=== PATIENT | male | born 1955 | race Caucasian/White ===

== ENCOUNTER 2025-05-27 19:08 | Inpatient (IN) | payer MEDICARE, BC ==
[~2025-05-27] VITALS: Ht 188 cm; Wt 70.2 kg
[2025-05-27] MEDS ORDERED: heparin 10,000 units/1 ML INJ IV ONE (19:15)
--- NOTE | 2025-05-27 19:19 | Physician Documentation ---
History of Present Illness ~ Stated Complaint: CP Time Seen by MD: 19:13 HPI Patient presents to the emergency room for evaluation for possible cardiac chest pain. He is transferred from [facility]. He apparently has been having increased frequency of chest pain in his scheduled for a stress test today but during the stress test he had began having significant chest pain along with EKG changes. Troponins were negative however given this scenario patient was placed on heparin. Patient denies one-sided leg pain. Medication Reconciliation Allergies: Coded Allergies: No Known Allergies (Unverified , 05/27/25) Review of Systems ROS All review of systems negative except as per HPI Physical Exam Physical Exam General: Patient is awake, alert, oriented x4 in no acute distress and well appearing.~ Head: Normocephalic and atraumatic. Eyes: Conjunctival normal. EOMI. PERRL. ENT: Mucous membranes moist. Neck: Supple, trachea is midline. Chest: Clear to auscultation bilaterally without rales, rhonchi, or wheezes. There is no accessory muscle use or retractions. Cardiac: RRR without murmurs, gallops, or rubs. Extremities: Normal strength. Normal range of motion. No deformities or edema. No calf tenderness to palpation Progress Results/Orders Results/Orders Orders - LUIS BANUELOS MD Chest,Single View (05/27/25 19:11) Monitor (05/27/25 19:11) Saline Lock (05/27/25 19:11) Oxygen (05/27/25 19:11) Cbc/Diff (05/27/25 19:11) BMP (05/27/25 19:11) PBNP (05/27/25 19:11) Hs Troponin I W Calculations (05/27/25 19:11) Hs Troponin I W Calculations (05/27/25 21:11) Hs Troponin I W Calculations (05/27/25 22:11) Pt Inr (05/27/25 19:12) PTT (05/27/25 19:12) Heparin 25,000 Unit/250ml Bag (Heparin 2 (05/27/25 19:15) Heparin 10,000 Unit/Ml 1ml (Heparin 10,0 (05/27/25 19:15) Cbc/Diff (05/28/25 03:00) Cbc/Diff (05/29/25 03:00) Cbc/Diff (05/30/25 03:00) Cbc/Diff (05/31/25 03:00) Cbc/Diff (06/01/25 03:00) Page Hospitalist (05/27/25 19:28) Fill Out Med Reconciliation (05/27/25 19:28) Hgb A1c (05/27/25 19:40) Completed Orders - LUIS BANUELOS MD Electrocardiogram (05/27/25 19:11) Message To Nursing (05/27/25 19:35) Vital Signs 05/27/25 19:13 Temp 97.8 Pulse 84 Resp 13 B/P (MAP) 135/84 Pulse Ox 98 O2 Flow Rate 0 Laboratory Tests Test 05/27/25 19:40 CBC Comment Coagulation Comments Chemistry Comments EKG/XRAY/CT/US/VASC/MRI EKG : Additional Comment EKG interpreted by myself shows time of 1930, rate 75, sinus rhythm, undetermined axis, no ST-T changes, right bundle-branch block Medical Decision Making Additional information obtaine: other Findings Patient presents to the emergency room for evaluation of chest pain sent from [facility] as per HPI. Patient's EKGs reassuring for no ST-elevation. Patient placed on heparin and given his history we will continue this. Patient to be evaluated by Cardiology. Heart Score: 6 Differential Dx:Considerations: Include: angina, aortic dissection, chest wall pain, cholelithiasis, CHF, costochondritis, esophageal reflux/spasm, gastritis, herpes zoster, myocardial infarction, pericarditis, pleuritis, pancreatitis, pneumonia, pneumothorax, pulmonary embolus, other Departure Admitted to Inpatient Unit: yes, to hospitalist Impression: Primary Impression: Unstable angina Condition: Guarded Referrals: NO PRIMARY CARE PROVIDER (PCP) Critical Care Note Total Time (mins): 30 Critical Care Note The very real possibility of a deterioration of this patient's condition required the highest level of my preparedness for sudden, emergent intervention. I provided critical care services, which included medication orders, frequent reevaluations of the patient's condition and response to treatment, ordering and reviewing test results, and discussing the case with various consultants. Excludes time spent performing separately billable procedures. The critical care time associated with the care of the patient was 30 minutes not counting pro cedures Signature Scribe Signature: No scribe Attestation: The note accurately reflects work and decisions made by me.Luis Banuelos MD 05/27/25 19:51 LUIS BANUELOS MD May 27, 2025 19:19
--- NOTE | 2025-05-27 19:33 | ELECTROCARDIOGRAPH REPORT ---
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 MATTHEW Sims Measurements Intervals [place] Rate: 75 P: 85 NC: 172 QRS: -82 QRSD: 123 T: 60 QT: 401 QTc: 448 Interpretive Statements Sinus rhythm Atrial premature complex RBBB and LAFB ST elevation, consider inferior injury Electronically Signed On 05-29-2025 16:51:[address] MATTHEW Sims Please click the below link to view image of tracing.
[2025-05-27] MEDS ORDERED: potassium Cl 20 mEq SR tablet PO PRN ×2 (19:40)
[2025-05-27] MEDS ORDERED: magnesium sulf-water 2g/50mL 50 ML IV PRN (19:40)
[2025-05-27] MEDS ORDERED: magnesium sulf-water 4G/100mL 100 ML IV PRN (19:40)
[2025-05-27] MEDS ORDERED: potassium Cl 40MEQ/1/2NS 520ml 520 ML IV PRN (19:40)
[2025-05-27] MEDS ORDERED: magnesium Cl slow-release 64mg tablet PO PRN (19:40)
[2025-05-27] MEDS ORDERED: mag hydrox/Alum hydrox/simeth 30ml oral suspension PO PRN (19:40)
[2025-05-27] MEDS ORDERED: magnesium hydroxide 30ml (MOM) UD suspension PO PRN (19:40)
[2025-05-27] MEDS ORDERED: ondansetron/PF 4mg/2ml inj IV PRN (19:40)
[2025-05-27 19:49] LABS: MEAN PLATELET VOLUME 9.5 FL (7.4-10.4); RED CELL DISTRIBUTION WIDTH 12.8 % (11.5-14.5)
[2025-05-27] MEDS: heparin 25,000 UNIT/250ml bag 250 ML IV PRN (19:59)
[2025-05-27] MEDS: K and/or MAG REPLACEMENT MC SCH (20:00)
[2025-05-27] MEDS: docusate sod 100mg capsule PO SCH (20:00)
[2025-05-27] MEDS: MESSAGE TO NURSING IV ONE ×2 (20:02→23:45)
[2025-05-27] MEDS: PERFLUTREN PROTEIN-A MICROSPHR (Optison) 0.22 MG/ML 3ML VIAL IV ONE (20:02)
[2025-05-27 20:12] LABS: CREATININE 0.84 MG/DL (0.60-1.10); PRO BRAIN NATRIURETIC PEPTIDE 89 PG/ML (0-125); TOTAL CARBON DIOXIDE 28.1 MMOL/L (24-32); eCRCL 81 ML/MIN; eGFR 90 ML/MIN
--- NOTE | 2025-05-27 20:14 | RADIOLOGY REPORT ---
CLINICAL HISTORY: CP TECHNIQUE: Single view of the chest was obtained. COMPARISON: None FINDINGS: The heart size and pulmonary vasculature are normal. The lungs are clear. IMPRESSION: NO ACUTE CARDIOPULMONARY PROCESS.
[2025-05-27 20:26] LABS: INR 1.1 INR
[2025-05-27 20:57] LABS: APTT 104 SECONDS (22-32)
[2025-05-27 22:04] VITALS: BP 120/69; PULSE 83; RESP 13; TEMP 97.8; O2SAT 97
--- NOTE | 2025-05-27 23:45 | HISTORY AND PHYSICAL-Residence ---
History & Physical Providers to CC Resident Creating Document: ELMER PARNELL, TURNER ~ History of Present Illness Reason for Admit\Complaint: Chest pain History of Present Illness A 70-year-old male with a history of atrial fibrillation and ongoing chest discomfort was transferred from [facility] for cardiac evaluation. Patient was undergoing a Lexiscan stress test when he developed worsening acute chest pain 4/10 in intensity, radiating to his left arm associated with tachycardia in the 150s. Nuclear medicine staff administered the reversal agent and sent him to the ED. On ED arrival his chest pain had resolved, and he was hemodynamically stable. Rhythm strip from the stress test showed tachycardia around 150 bpm with underlying right bundle branch block and new ST depressions compared to baseline; likely sinus tachycardia versus atrial flutter. He claims the chest pain has been ongoing since the past 3 months which is mainly left-sided radiating to the left arm, substernal, relieved on sleeping but otherwise constant throughout the day. ED EKG demonstrated sinus rhythm in the 80s, occasional supraventricular premature complexes, persistent RBBB, and no acute ischemic changes. Troponin was <0.01 and labs otherwise were unremarkable; chest X-ray showed no acute abnormality. HEART score was 6 (high risk). Because symptoms during stress testing are concerning for unstable angina and high-risk ACS, patient was transferred for cardiology evaluation. ED EKG at [facility] showed right bundle-branch block with left anterior fascicular block and premature atrial complexes with sinus rhythm. 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 He however can not recall if he was ever diagnosed with a AFib. He denied use of any anticoagulation and is on diltiazem for rhythm control. He was also recommended to take daily aspirin 81 mg, but patient has never considered taking aspirin daily. Allergies: Coded Allergies: No Known Allergies (Unverified , 05/27/25) Past Medical History Past Medical History Hypertension Coronary artery disease Insomnia Lumbar intervertebral disc radiculopathy Dyslipidemia Fracture of trapezoid of right wrist Left-sided sciatica Past Surgical History Surgical History Comment Lower back surgery Past Social History Social History Comment Denied smoking, illicit use of drugs Admits to use of occasional alcohol, couple of beers a day ROS ROS Reviewed in full. All negative except for pertinent positive HPI. Exam Vitals: Vital Signs Date Time Temp Pulse Resp B/P (MAP) Pulse Ox O2 Delivery O2 Flow Rate FiO2 05/27/25 20:19 82 16 133/81 (98) 99 0 05/27/25 19:13 97.8 General: Awake , alert, and oriented x4, resting comfortably in the bed, in no acute distress HEENT: Atraumatic, normocephalic, EOMI, anicteric sclera ; pink conjunctiva Neck: Trachea midline. Supple, full range of motion, no JVD Cardiac: Regular rhythm, regular rate with no murmurs all over the precordium. Respiratory: Equal breath sounds bilaterally, no tachypnea, no wheezing ,rub or rales, Chest wall is symmetric and without deformity. Gastrointestinal: Abdomen symmetric, non-distended, soft, non-tender, normal bowel sounds x4 quadrant, normoactive, no hepatosplenomegaly Musculoskeletal: No pedal edema, no cyanosis Neurological: Mental status exam: alert and consciousness, orientation, memory, speech - Cranial nerve test: Cranial nerves 2-12 intact - Motor system: Nutrition, Tone 3+, Power 5/5, no involuntary movements - Sensory system: Mild decreased sensation all over left lower extremity - Reflex testing: Biceps, triceps and knee reflexes 2+ - Cerebellar: Normal Skin: Warm and dry Diagnostic Data Last Recorded Lab Results: 05/27/25193905/27/251939 Diagnostic Data: Laboratory Tests Test 05/27/25 19:40 05/27/25 23:18 Prothrombin Time 11.6 SECONDS (9.0-12.0) INR International Normalized Ratio 1.1 INR Activated Partial Thromboplast Time 104 SECONDS (22-32) *H APTT (Heparin Protocol) 26 SECONDS (45-60) L Coagulation Comments Advance Care Planning Advanced Care plannin - 30 Minutes Additional Plan 1. High-Risk Chest Pain / Suspected Unstable Angina HEART score = 6 high-risk category Chest pain radiating to left arm during stress test, concerning for ACS Stress rhythm strip: tachycardia ~[address]ressions Initial troponin <0.01 Currently denies chest pain Plan: Serial troponins negative Continue heparin drip in view of ongoing unstable angina Ordered aspirin 81 mg daily, atorvastatin 40 mg, metoprolol succinate 50 mg p.o. daily Patient received 1 dose of aspirin 325 mg in the ED at the other facility Nitroglycerin PRN ordered Echocardiogram ordered to assess for any wall motion abnormalities/ valvular abnormalities Cardiology consultation in a.m. for possible catheterization NPO after midnight 2. Tachyarrhythmia (Sinus Tachycardia vs Atrial Flutter) Underlying questionable AFib history (not on anticoagulation) Foster Vasc score 2 Stress-test strip showed HR 150; underlying Afib history Sinus vs flutter 2:1 Plan: Continuous telemetry monitoring Patient is currently in sinus rhythm, EKG shows right bundle-branch block with left anterior fascicular block Patient does not recall of any diagnosed with AFib in the past Continue telemetry monitoring for any arrhythmias Initiate Eliquis 5 mg b.i.d. based on tele monitoring; also avoiding anticoagulation for now in view possible catheterization Cardiology-directed management if recurrence (rate control vs rhythm control) Hold home medication diltiazem as metoprolol succinate 50 mg has been initiated, which also helps with rate control. 3. Insomnia: Continue home medication trazodone med rec Code Status: I spent a total of 17 minutes on reviewing various resuscitative measures with the patient at the time of admission. The patient has decided on a full code status. DVT Prophylaxis: Heparin drip Analgesia/ Sedation: Morphine Nutrition: NPO after midnight PT: Ordered Prognosis: Guarded Disposition: Cardiology consultation in a.m., continue monitoring analyst Elmer Parnell MD Internal Medicine Resident, PGY-2 Patient was evaluated with the resident using HIPPA compliant AV device Agree with the plan as discussed with the resident Augustine Welch Date of Service: May 28, 2025 Billing Provider: AUGUSTINE WELCH MD, GAURAV, RES May 27, 2025 23:45 AUGUSTINE WELCH MD May 28, 2025 02:25
[2025-05-28] VITALS (7 sets, daily range): BP systolic 78–112; BP diastolic 45–66; PULSE 64–82; RESP 11–18; TEMP 97.6–98.5; O2SAT 96–98
[2025-05-28] MEDS: heparin 10,000 units/1 ML INJ IV PRN (00:14)
[2025-05-28] MEDS ORDERED: DILT120T3 PO (00:26)
[2025-05-28] MEDS ORDERED: TRAZ-251 PO (00:26)
[2025-05-28 07:06] LABS: MEAN PLATELET VOLUME 9.8 FL (7.4-10.4); RED CELL DISTRIBUTION WIDTH 12.7 % (11.5-14.5)
[2025-05-28] MEDS: MESSAGE TO NURSING IV ONE ×2 (07:55→12:55)
[2025-05-28] MEDS: metoprolol succinate 25mg (24-HOUR) SR. Tablet PO SCH (08:00)
[2025-05-28 08:04] LABS: CHOL/HDL RATIO 2.8 (0.00-4.99); CREATININE 0.86 MG/DL (0.60-1.10); LDL CHOLESTEROL 124 MG/DL (50-100); TOTAL CARBON DIOXIDE 24.6 MMOL/L (24-32); eCRCL 79 ML/MIN; eGFR 88 ML/MIN
--- NOTE | 2025-05-28 13:55 | ELECTROCARDIOGRAPH REPORT ---
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 MATTHEW Sims Measurements Intervals [place] Rate: 66 P: 86 NH: 170 QRS: 143 QRSD: 123 T: 73 QT: 415 QTc: 435 Interpretive Statements Sinus rhythm Ventricular trigeminy Right atrial enlargement RBBB and LPFB ST elevation, consider lateral injury Electronically Signed On 05-28-2025 16:54:[address] MATTHEW Sims Please click the below link to view image of tracing.
--- NOTE | 2025-05-28 16:16 | CONSULTATION REPORT ---
History of Present Illness Providers to CC CC: YUE EGAN MD ~ Reason for Admit\Admit Dx: Cardiology consultation History of Present Illness Patient presented as a transfer from [facility] secondary to positive stress test. He was having intermittent episodes of chest pain and saw Dr. Clifton, manager photo who ordered a stress test. During the stress test he began having chest pain and tachycardia. Reversal was given and he was transferred to the emergency department. He was found to have negative troponins. Was transferred to [facility] for Cardiology consultation. He has stated past medical history of insomnia, atrial fibrillation. He denies history of hypertension. Initially denied history of atrial fibrillation as well. Denies dyslipidemia. Allergies: Coded Allergies: No Known Allergies (Unverified , 05/27/25) Home Medications Home Medications Active Reported Diltiazem HCl 120 Mg Tablet 1 Tab PO Q12H 30 Days Trazodone HCl 50 Mg Tablet 1 Tab PO HS 30 Days Past Medical History Medical History Comment Insomnia Atrial fibrillation on diltiazem Denies history of hypertension or dyslipidemia Past Surgical History Surgical History Comment Patient has had multiple orthopedic surgeries including shoulder and hand surgery. He has had a back surgery Physical Exam Last Vital Signs Recorded: RN Vital Signs have been reviewed: Yes, Temperature: 98.5, Source: Temporal, Heart Rate: 82, Respiratory Rate: 11, BP: 95/66, Pulse Oximetry: 98, Weight: 70.200 Physical Exam General: Awake, alert, oriented. No apparent distress Neck: Supple. Normal range of motion. No JVD Respiratory: Lungs are clear to auscultation bilaterally. No respiratory distress. Chest: Normal shape and size. No accessory muscle use. Cardiovascular: Regular rate and rhythm. S1-S2. No murmur, gallop, rub. Extremities: No lower extremity edema, cyanosis or clubbing. Neurologic: Alert and oriented x4. Nonfocal Psychiatric: Normal mood and affect. Skin: Normal color. Warm and dry. Review of Systems ROS Patient complains of chest pain that has been intermittent. Intermittent palpitations. No shortness a breath, nausea, vomiting, diaphoresis. Chest pain located in the left chest radiating to the inside of his left arm. Described as intense. Results Echocardiogram Echocardiogram Echocardiogram demonstrated preserved LVEF. Cardiac Stress Test Cardiac Stress Test Stress test was completed that was read as small inferior fixed defect with moderate jeni-infarct ischemia in the inferior and lateral mejias. He did have SVT versus atrial flutter two-to-one conduction during his stress test Diagram Lab Result Diagram: 05/28/2533 05/28/25632 Assessment/Plan Additional Plan Patient presented secondary to SVT/failed stress test. The following is his problem list: Angina Stress test with inferior reversibility Recommend angiogram. The risks, benefits and alternatives were reviewed in detail. He had the opportunity to ask questions and wishes to proceed. We will be scheduled for the same. We will take place tomorrow, May 29 at 6:00 a.m. --Stop heparin --continue aspirin 81 mg daily --continue statin. --continue metoprolol SVT versus atrial flutter --recommend outpatient event monitor History of a irregular heartbeat. Presumably atrial fibrillation. Case discussed with Dr. Derrick Egan who is in agreement with this plan. --on diltiazem as an outpatient Supervising MD Supervising Physician: EDWARD Jean NP May 28, 2025 16:16
--- NOTE | 2025-05-28 16:58 | CARDIOLOGY REPORT ---
APPROVED REPORT EXAM: Limited 2D, Doppler, and color-flow Echocardiogram. Patient Location: [facility] Blood Pressure: 95/65 mmHg Heart Rate: 80 bpm Indications Chest Pain Abnormal EKG REGISTERED MIDWIFE: (Dulce Dobbs MD [place], [place]) NO Previous ECHO 2D Dimensions IVSd 0.6 (0.7-1.1cm) LVDd 4.0 cm PWd 0.7 (0.7-1.1cm) IVSs 1.0 (0.8-1.2cm) LVDs 2.5 (2.5-4.0cm) PWs 1.3 (0.8-1.2cm) LVOT Diameter 2.07 (1.8-2.4cm) LVEF(%) 68.9 (>50%) IVC 10.25 mm FS (%) 38.2 % SV 49.6 ml CO 4.2 L/min M-Mode Dimensions Left Atrium(MM) 2.05 (2.5-4.0cm) Aortic Root 3.37 (2.2-3.7cm) Aortic Cusp Exc 1.98 (1.5-2.0cm) MV EPSS 0.6 (<0.5cm) Mitral Valve MV E Velocity 66.9 cm/s MV DECEL TIME 252 ms MV A Velocity 68.5 cm/s E/A Ratio 1.0 Tricuspid Valve TR P. Velocity 198 cm/s RAP ESTIMATE 10 mmHg TR Peak Gr. 16 mmHg RVSP 26 mmHg LEFT VENTRICLE Normal LV size and wall thickness. Overall systolic function is normal. Overall LVEF is 65-70%. RIGHT VENTRICLE RV is normal size and function. ATRIA The left atrium size is normal. AORTIC VALVE Trileaflet AV appears mildly sclerotic. No insufficiency by color and spectral flow Doppler. AV not fully evaluated due to lack of imaging windows. MITRAL VALVE Mitral valve leaflets are thickened with mild annular calcification. Trace regurgitation. MV not fully evaluated due to lack of imaging windows. TRICUSPID VALVE Tricuspid valve is grossly normal in structure with trace regurgitation. PULMONIC VALVE Pulmonic valve is grossly normal in structure. GREAT VESSELS The aortic root is normal in size. The IVC is normal in size and collapses >50% with inspiration. PERICARDIUM Normal pericardium. No effusion. Other Information Study Quality: Fair with difficult to no apical views Conclusion Overall LVEF is 65-70%. Normal LV size and wall thickness. Overall systolic function is normal. RV is normal size and function. Trileaflet AV appears mildly sclerotic. No insufficiency by color and spectral flow Doppler. AV not fully evaluated due to lack of imaging windows. Mitral valve leaflets are thickened with mild annular calcification. Trace regurgitation. MV not fully evaluated due to lack of imaging windows. Tricuspid valve is grossly normal in structure with trace regurgitation. Normal pericardium. No effusion.
--- NOTE | 2025-05-28 17:19 | ELECTROCARDIOGRAPH REPORT ---
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
[2025-05-28] MEDS: diltiazem CD 120mg capsule (once-daily) PO ONE (17:59)
[2025-05-28] MEDS: metoprolol tartrate 1mg/ml inj IV ONE (18:01)
[2025-05-28] MEDS: diltiazem CD 120mg capsule (once-daily) PO SCH (20:00)
--- NOTE | 2025-05-28 20:03 | PROGRESS NOTE- Residence ---
Progress Note - Resident Providers to CC Resident Creating Document: KINGS DELGADO RES ~ Antibiotic Timeout Antibiotic Ordered?: No Subjective Patient seen and examined today. He is comfortably resting in the bed denies any chest pain, palpitations or any other complaints. Stated that he had intermittent left-sided chest pain on exertion for the past many years and he started having it even at rest for the last couple of years. He regularly gets stress test done and had one yesterday when he developed severe chest pain. Per the transferring doctor also EKG changes. Patient mentioned that he recently got a Holter monitoring done for 10 days but does not know the result. Stated that he occasionally gets palpitations. Thinks that he has irregular rhythm but was never diagnosed with any AFib or atrial flutter. Takes diltiazem at home but denied using any anticoagulation. Telemetry showed sinus rhythm with regular rate Objective Vital Signs Date Time Temp Pulse Resp B/P (MAP) Pulse Ox O2 Delivery O2 Flow Rate FiO2 05/28/25 18:01 165 05/28/25 15:00 98.3 18 95/65 (75) 98 Room Air 05/28/25 07:11 0.0 Result Diagram: 05/28/25 0633 05/28/25 0633 General: Alert and oriented x 4 HEENT: Normocephalic and atraumatic. Pupils equal round and reactive to light and accommodation. Extraocular movements intact. Oral and nasal mucosa moist Neck: Trachea is in midline. No masses or JVD Lungs: Bilateral normal breath sounds. No crackles, rhonchi or wheezes Heart: Regular rate and rhythm. S1-S2 normal. No rubs or murmurs Abdomen: Soft, nontender and nondistended. Bowel sounds present BRAND RECORDER: No gross sensory or motor abnormalities Extremities: No cyanosis, clubbing or edema Skin: Warm and dry Coagulation Studies Laboratory Tests Test 05/27/25 19:40 05/28/25 12:00 Prothrombin Time 11.6 SECONDS (9.0-12.0) INR International Normalized Ratio 1.1 INR Activated Partial Thromboplast Time 104 SECONDS (22-32) *H APTT (Heparin Protocol) 63 SECONDS (45-60) H Coagulation Comments Assessment Assessment The 70-year-old with recurrent chest pain was transferred after developing chest pain EKG during the cardiac stress test Plan Plan Unstable angina Troponins negative EKG showed sinus tachycardia with a prolonged QRS, T-wave inversions in the precordial leads Continue aspirin 81 mg p.o. daily, Lipitor 80 mg p.o. daily, diltiazem 120 mg p.o. daily Discontinued heparin drip Cardiology consulted and plan for cardiac catheterization tomorrow Metoprolol discontinued as patient is denying and also he is on calcium channel christofer Suspected arrhythmia Got a Holter monitoring done for 10 days recently Awaiting resolve Insomnia: Continue home medication trazodone med rec Kings eDlgado MD Internal Medicine Resident, PGY 3 Date of Service: May 28, 2025 Billing Provider: YUMIKO MARIO MD Common Visit Codes: [id number] INP/OBS CARE(HIGH) KINGS DELGADO RES May 28, 2025 20:03 YUMIKO MARIO MD May 29, 2025 08:41
[2025-05-29] VITALS (13 sets, daily range): BP systolic 79–107; BP diastolic 43–72; PULSE 61–85; RESP 13–14; TEMP 97.5–98.1; O2SAT 95–98
[2025-05-29] MEDS ORDERED: verapamil 2.5 mg/ml inj IV ONE (05:22)
[2025-05-29] MEDS ORDERED: LIDOcaine 1% (10mg/ml) 2ml vial ONE (05:22)
[2025-05-29] MEDS ORDERED: heparin 1,000unit/ml 10ml vial 10 ML ONE (05:23)
[2025-05-29] MEDS ORDERED: nitroGLYCERIN 500mcg/5mL D5W 5 ML IV ONE (05:23)
[2025-05-29] MEDS ORDERED: midazolam 1 mg/ML 2ml injection ONE (05:23)
[2025-05-29] MEDS ORDERED: fentaNYL/PF 50MCG/1 ML 2ML syringe ONE (05:23)
--- NOTE | 2025-05-29 06:27 | CARDIAC CATH REPORT ---
Cardiac Cath Report Providers to CC CC: OLEG CARCAMO DO; YUE JUNE MD Procedure Comments: 1. Left Heart Catheterization 2. Selective Coronary Angiography 3. Right Radial Artery Access Brief History/Indications: 70yo man with SVT transferred after he was noted to have symptoms during MPI, results revealing possible inferior defect. Techniques: After informed consent was obtained, the patient was brought to the cardiac catheterization laboratory and prepped and draped in usual sterile fashion for left heart catheterization and other procedures mentioned above. The right wrist was anesthetized with 1% Lidocaine and the right radial artery accessed via the Seldinger technique after which a 6Fr sheath was placed. Through this a TIG was used to engage the left ventricle, the left coronary artery, and the right coronary artery. At the conclusion of the case the sheath was removed and hemostasis obtained with a VascBand. Findings Findings: HEMODYNAMICS: LV: 82/- mmHg LVEDP: 5 mmHg Ao: 77/53, MAP 63 mmHg CORONARY ARTERIES: (FRANCESCA II flow in all coronaries) Rt Dominant LMCA: Luminal Irregularities LAD: Luminal Irregularities D1: Small, Luminal Irregularities D2:Small, Luminal Irregularities LCx: Luminal Irregularities OM1: Luminal Irregularities RCA: Luminal Irregularities PDA: Luminal Irregularities PL: Luminal Irregularities Results Results: 1. No significant obstructive CAD, Although FRANCESCA II flow throughout coronaries 2. RRA Access, closed with VascBand RECOMMENDATIONS: 1. Recommend uptitration of max-tolerated GDMT LADY JUNE MD May 29, 2025 06:27
[2025-05-29 07:19] LABS: MEAN PLATELET VOLUME 9.6 FL (7.4-10.4); RED CELL DISTRIBUTION WIDTH 12.8 % (11.5-14.5)
[2025-05-29 07:35] LABS: CREATININE 0.93 MG/DL (0.60-1.10); TOTAL CARBON DIOXIDE 25.3 MMOL/L (24-32); eCRCL 73 ML/MIN; eGFR 80 ML/MIN
[2025-05-29] MEDS ORDERED: ASPI81TA53 PO (10:23)
[2025-05-29] MEDS ORDERED: ATOR20TA66 PO (10:23)
--- NOTE | 2025-05-29 20:30 | DISCHARGE SUMMARY ---
Discharge Summary Providers to CC ~ Discharge Summary Admission Diagnosis: Chest Pain Hospital Course DATE OF ADMISSION: 05/27/25 DATE OF DISCHARGE:05/29/25 CBC testing done on May 29, 2025 WBC 6.9 hemoglobin 14.4 hematocrit 41.7 platelet count 161. Serum chemistry done on May 29, 2025 sodium 141 potassium 3.9 creatinine 0.93 GFR 80. 5.5 hemoglobin A1c. Total bilirubin 1.1 normal AST ALT and alkaline phosphatase cardiac markers unremarkable. In 24 rest of the lipid panel unremarkable. ProBNP 89 ECHOCARDIOGRAMConclusion Overall LVEF is 65-70%. Normal LV size and wall thickness. Overall systolic function is normal. RV is normal size and function. Trileaflet AV appears mildly sclerotic. No insufficiency by color and spectral flow Doppler. AV not fully evaluated due to lack of imaging windows. Mitral valve leaflets are thickened with mild annular calcification. Trace regurgitation. MV not fully evaluated due to lack of imaging windows. Tricuspid valve is grossly normal in structure with trace regurgitation. Normal pericardium. No effusion. CHEST,SINGLE VIEWIMPRESSION: NO ACUTE CARDIOPULMONARY PROCESS. Discharge Diagnosis\\Comment: unstable Angina Stress test with inferior reversibility SVT versus atrial flutter History of a irregular heartbeat. Presumably atrial fibrillation. Insomnia Operations\\Procedures: Cardiac catheterization Consultants: Dr. Derrick Egan Complications: None Condition on DC: Stable New Medications: Aspirin (Children's Aspirin) 81 Mg Tab.chew 81 MG PO DAILY@0830 for 30 Days, #30 TAB.CHEW Atorvastatin Calcium (Atorvastatin Calcium) 20 Mg Tablet 80 MG PO DAILY for 30 Days, #30 TAB Continued Medications: Diltiazem HCl (Diltiazem HCl) 120 Mg Tablet 1 TAB PO Q12H for 30 Days, #60 TAB 0 Refills Trazodone HCl (Trazodone HCl) 50 Mg Tablet 1 TAB PO HS for 30 Days, #30 TAB 0 Refills Discharge Summary: The 70-year-old with recurrent chest pain was transferred after developing chest pain EKG during the cardiac stress test Unstable angina Troponins negative EKG showed sinus tachycardia with a prolonged QRS, T-wave inversions in the precordial leads Continue aspirin 81 mg p.o. daily, Lipitor 80 mg p.o. daily, diltiazem 120 mg p.o. daily Discontinued heparin drip Cardiology consulted and plan for cardiac catheterization tomorrow Metoprolol discontinued as patient is denying and also he is on calcium channel christofer Cardiac catheterization was done on May 29, 2025 as per cardiology note" No significant obstructive CAD, Although FRANCESCA II flow throughout coronaries RRA Access, closed with VascBand" Suspected arrhythmia Got a Holter monitoring done for 10 days recently on diltiazem 120 mg p.o. daily Insomnia: Continue home medication trazodone Patient is feeling better , chest pain to me today . he has been afebrile and getting discharged home in stable condition. Patient is seen and examined on the day of discharge. All labs, diagnostic workup and discharge plan discussed with patient in detail before her discharge. All questions and queries answered to the best of my professional medical knowledge. I heard patient's concerns and address appropriately. Patient was cleared by Physical therapy team for home discharge. assurance manager insurance Nessa involved in patient's discharge plan. Discharge instructions provided to the patient. please follow up with PCP, documentation improvement specialist to two weeks. . Maintain blood pressure and heart rate log book for 2-3 weeks and follow-up with the primary care physician/ safety specialist . Activity as tolerated General-patient not in any acute distress, alert awake oriented, age- appropriate, looks comfortable HEENT-atraumatic normocephalic, neck supple without elevated JVD, no thyromegaly or carotid bruit. No lymphadenopathy bilaterally. Eyes-no icterus or pallor seen in eyes Chest-clear to auscultation bilaterally, breathing nonlabored no tachypnea, no wheezing, no crepitation, no crackles. Heart-S1-S2 normal, regular heart rate no murmur Abdomen bowel sounds positive on auscultation, soft nondistended nontender no guarding, no rigidity Skin no active skin rash Neurology-grossly intact, nonfocal alert awake oriented Extremity- no pedal edema able to move all 4 extremities Psychiatry - patient is not confused or agitated cooperated during physical examination *Problems/Diagnosis: (1) Unstable angina Status: Acute Total Time Spent on D/C: > 30 Minutes Date of Service: May 29, 2025 Billing Provider: YUMIKO MARIO MD Common Visit Codes: 51431-NVD/OBS DISCH DAY >30min YUMIKO MARIO MD May 29, 2025 20:25
--- NOTE | 2025-06-04 14:25 | ELECTROCARDIOGRAPH REPORT ---
[facility] Test Date: 2025-05-28 Test Time: 17:21:18 Pat Name: CRISTIAN CORTEZ Department: [facility] 3S Patient ID: [facility]-[id number] Room: [place] [id number] A Gender: M Financial Advisor: Eliana Marie : 1955 Requested By: YUMIKO MARIO Order Number: [id number] Reading MD: Dr. MATTHEW Sims Measurements Intervals [place] Rate: 138 P: 96 W[place]: 103 QRS: -85 QRSD: 145 T: -61 QT: 353 QTc: 535 Interpretive Statements Sinus tachycardia Ventricular trigeminy Right bundle branch block Inferior infarct, age indeterminate Electronically Signed On 05-29-2025 16:49:[address] MATTHEW Sims Please click the below link to view image of tracing.
== END 2025-05-29 13:28 | disposition home or self-care (01) | DRG 287 ==
LOC: ER 19:08 → ED HOLD 19:39 → PCU 3S 22:05
PROVIDERS: ADMIT Internal Medicine; ATTEND Internal Medicine
PROC: 4A023N7 Measurement of Cardiac Sampling and Pressure, Left Heart, Percutaneous Approach (ICD-10-PCS; principal; 2025-05-29)
PROC: B2111ZZ Fluoroscopy of Multiple Coronary Arteries using Low Osmolar Contrast (ICD-10-PCS; 2025-05-29)
DX: I48.92 Unspecified atrial flutter (principal); I20.0 Unstable angina; I47.10 Supraventricular tachycardia, unspecified; G47.00 Insomnia, unspecified; I48.91 Unspecified atrial fibrillation; Z79.82 Long term (current) use of aspirin; Z79.899 Other long term (current) drug therapy
CPT/HCPCS: 36415; 71045; 80048; 80053; 80061; 83036; 83735; 83880; 84484; 85025; 85610; 85730; 87081; 93005; 93308; 93458; 96374; 96376; 99152; 99153; 99291; C1894; G0378; J1644; J2003; J2250; J3010; J3490; J7030; Q9967